=== PATIENT | male | born 1980 | race Caucasian/White ===

== ENCOUNTER 2020-02-26 14:05 | Emergency (ER) | payer SELFPAY ==
[2020-02-26 14:12] VITALS: BP 138/78; PULSE 64; TEMP 98.1; BMI 26.6
== END 2020-02-26 17:01 | disposition home or self-care (01) ==
LOC: JERFT 14:05
PROC: 0HQFXZZ Repair Right Hand Skin, External Approach (ICD-10-PCS; principal; 2020-02-26)
DX: S61.210A Laceration without foreign body of right index finger without damage to nail, initial encounter (principal)
CPT/HCPCS: 73140-TC-RT-FY; 99284-25